=== PATIENT | female | born 1955 | race Hispanic/Latino ===

== ENCOUNTER 2017-07-08 09:52 | Day surgery (SDC) | payer BC ==
[2014-09-11 11:28] VITALS: BMI 32.9
[2017-07-08] MEDS ORDERED: Lactated Ringer's 1,000 ML IV SCH (11:15)
[2017-07-08] MEDS ORDERED: Lidocaine 1% Inj (20ml) ONE (11:16)
[2017-07-08] MEDS ORDERED: Bupivacaine 0.5% Inj(30mL) ONE (11:16)
[2017-07-08] MEDS ORDERED: Propofol 10 mg/ml Inj (20 ML) ONE (11:35)
[2017-07-08] MEDS ORDERED: Midazolam 2 MG/2 ML VIAL ONE (11:35)
[2017-07-08 12:43] VITALS: RESP 18
[2017-07-08 13:33] VITALS: PULSE 68; TEMP 97.6; O2SAT 95
[2017-07-08 14:21] VITALS: BP 132/70
--- NOTE | 2017-07-09 00:22 | OP ---
PROCEDURE DATE: 07/08/2017 PREOPERATIVE DIAGNOSES: Right carpal tunnel syndrome for 6 months and a trigger finger fourth digit right hand for the same period of time. POSTOPERATIVE DIAGNOSES: Right carpal tunnel syndrome for 6 months and a trigger finger fourth digit right hand for the same period of time. PROCEDURE: Open carpal tunnel release, right hand and open trigger finger release, fourth digit right hand. TYPE OF ANESTHESIA: IV sedation with local anesthesia with combination of Xylocaine and Marcaine 0.5%. DESCRIPTION OF PROCEDURE: The patient was taken to OR, right hand prepped and draped in sterile fashion, sterile tourniquet applied to 200 mmHg pressure, made landmarks of the hand for the planned incision which was for the carpal tunnel in between the 2 thenar eminences at the level of the Jin's line to allow us to stay in line with the fourth digit and seen the incision was rather inch long going half inch below and half inch above the cardinal line. Deep dissection down to go to the subcutaneous tissue and the fascia and with the help of the [place], everything was cleared away of the adipose tissue. We identified the distal end of the transverse carpal ligament and put in the first jig which allowed us to go into the palm going between the median nerve and the transverse carpal ligament and a second jig was put into go a little more proximal and then the third and last jig and even more proximal of the implant to free up the median nerve from the carpal ligament *------* fascia. Once the transverse carpal ligament was released, the nerve was not under the pressure and was irrigated with normal saline before we closed the wound of the carpal tunnel into the fourth digit just above the metacarpophalangeal joint to do a trigger finger release in the chevron incision, apex ulnar, have been a centimeter each limit 60 degrees and that we had excavated down to the first annular rhonda, this was really set to be cleared with the *------* and retraction. We opened it with a 15 blade and then looked up at the flexor tendon and did not step any more, there was no more restriction, so we closed that wound also. After thorough irrigation, closed the skin with 3-0 nylon all interrupted sutures, combination of simple and vertical mattress. The patient placed in a good compression dressing after the wound was found to be free of any bleeding, the tourniquet was deflated. The patient brought to the recovery room with compression dressing in good condition. Yosi Rob DO
== END 2017-07-08 14:19 | disposition home or self-care (01) ==
LOC: SDS 09:52
PROVIDERS: ATTEND Orthopaedic Surgery
DX: G56.01 Carpal tunnel syndrome, right upper limb (principal); M65.341 Trigger finger, right ring finger
CPT/HCPCS: 26055; 64721; J0690; J2001; J2250; J2704; J3010; J7120